=== PATIENT | female | born 1955 | race Caucasian/White ===

== ENCOUNTER 2016-10-26 15:58 | Outpatient (CLI) | payer BC | END 2016-10-26 15:59 | disposition home or self-care (01) | LOC: MADLABBHPM 15:58 | PROVIDERS: ATTEND Family Medicine | DX: N39.0 Urinary tract infection, site not specified (principal) | CPT/HCPCS: 87086 ==

== ENCOUNTER 2020-04-15 12:22 | Emergency (ER) | payer BC, SELFPAY ==
--- NOTE | 2020-04-15 13:01 | RAD ---
Right knee:3 views INDICATIONS:Injury with pain COMPARISON:None FINDINGS: Comminuted fracture involving the proximal tibia with fracture lines involving both medial and latera l tibial plateau with depression of the lateral tibial plateau. Comminuted displaced fracture of the fibular head. Soft tissue edema and evidence of joint effusion. IMPRESSION: Comminuted displaced fractures proximal tibia and fibula.
[2020-04-15] MEDS ORDERED: Ondansetron PF 4 MG/2 ML Vial ONE (13:40)
[2020-04-15] MEDS ORDERED: Sodium Chloride 0.9% 1,000 ML ONE (13:40)
[2020-04-15] MEDS ORDERED: Morphine 4 MG/ML VIAL ONE (13:40)
[2020-04-15 13:50] LABS: #Basophils 0.1 thou/uL (0.0-0.2); #Eosinphils 0.1 thou/uL (0.0-0.7); #Lymphocytes 1.3 thou/uL (1.20-3.40); #Monocytes 0.8 thou/uL (0.11-0.59); #Neutrophils 9.2 thou/uL (1.40-6.50); %Basophils 0.7 % (0.0-1.0); %Eosinophils 0.9 % (0.0-10.0); %Lymphocytes 11.5 % (21.0-51.0); %Monocytes 6.6 % (0.0-10.0); %Neutrophils 80.3 % (42.0-75.0); Hemoglobin 13.4 g/dL (12.0-16.0); Mean Corpuscular HGB CONC 32.2 g/dL (32.0-36.0); Mean Corpuscular Hemoglobin 30.7 pg (27.0-31.0); Mean Corpuscular Volume 95.5 fL (78.0-98.0); Mean Platelet Volume 10.2 fL (7.4-10.4); Platelet Count 225 thou/uL (130-400); RBC Distribution Width 12.1 % (11.5-14.5); Red Blood Cell (RBC) Count 4.38 mill/uL (4.20-5.40); White Blood Cell (WBC) Count 11.5 thou/uL (4.8-10.8)
--- NOTE | 2020-04-15 14:00 | RAD ---
EXAM: Single view of the chest HISTORY: Preoperative radiograph COMPARISON: None FINDINGS: Single view of the chest shows an enlarged cardiomediastinal silhouette. Atherosclerotic c alcifications are seen in the aorta. Opacities projecting over both sides of the chest may represent nipple shadows. There is no evidence of consolidation or pleural effusion. No acute osseous abnormality. IMPRESSION: 1. Cardiomegaly 2. Nipple shadows versus pulmonary parenchymal masses. A repeat chest x-ray with nipple markers is re commended.
[2020-04-15 14:05] LABS: ALT (SGPT) 15 U/L (8-55); AST (SGOT) 18 U/L (5-34); Alkaline Phosphatase 96 U/L (40-110); Anion Gap 15 mmol/L (10-20); BUN (Urea Nitrogen) 12 mg/dL (9.8-20.1); Bilirubin, Total 0.6 mg/dL (0.2-1.2); CK (CPK) 134 U/L (29-168); Calc. Creatinine Clearance 0 mL/min (70-130); Calcium 9.4 mg/dL (7.8-10.44); Carbon Dioxide 26 mmol/L (23-31); Chloride 99 mmol/L (98-107); Estimated GFR-MDRD 69; Globulin 3.5 g/dL (2.4-3.5); Glucose 118 mg/dL (80-115); Potassium 3.8 mmol/L (3.5-5.1); Protein, Total 7.5 g/dL (6.0-8.3); Sodium 136 mmol/L (136-145)
--- NOTE | 2020-04-15 14:14 | CT ---
EXAM: CT brain without contrast HISTORY: Fall from a ladder with head trauma COMPARISON: None TECHNIQUE: Multiple contiguous axial images were obtained and a CT of the brain without contrast. Sag ittal and coronal reformats were performed. FINDINGS: There are scattered hypodensities in the subcortical and periventricular white matter consi stent with small vessel ischemic disease. There is atrophy of the bilateral temporal lobes, left greater than right. There is no evidence of hydrocephalus, intracranial hemorrhage, or extra-axial fl uid collection. The calvarium and overlying soft tissues are unremarkable. The visualized paranasal sinuses and masto id air cells are well aerated. IMPRESSION: No evidence of acute intracranial abnormality
--- NOTE | 2020-04-15 15:13 | CT ---
CT cervical spine without contrast: Multiple axial tones obtained through cervical spine with multiplanar reconstruction. INDICATIONS: trauma with cervical spine injury COMPARISON: none FINDINGS: There are moderate degenerative changes of the cervical spine. Mild wedging of C5 and C6 appears blocker hand li. Loss of disc space at these levels. Posterior spondylosis is prominent at C4-5, C5-6, and C6-7. Left foraminal stenosis at C3-4. Left foraminal stenosis at C4-5. Bilateral foraminal stenosis at C3-5-6 with cord compression and central canal stenosis. Bilateral foraminal stenosis and cord compression C6-7. Lucency through the base of the right transverse process at C7 is noted. This is well-corticated and does not represent an acute fracture. Possible old fracture. No evidence of acute fracture. No other cervical spine fracture identified. IMPRESSION: 1. No evidence of acute cervical spine fracture 2. Degenerative changes as described.
[2020-04-15 15:59] LABS: Bilirubin Negative (Negative); Blood, Urine Negative (Negative); Clarity Clear (Clear); Glucose, Urine (Dipstick) Negative (Negative); Ketone, Urine Negative (Negative); Leukocyte Negative (Negative); Nitrite Negative (Negative); Protein, Urine (Dipstick) Negative (Neg-Trace); Urobilinogen 0.2 mg/dL (Less than 2); pH, Urine 5.5 (5.0-9.0)
[2020-04-15 16:00] LABS: Specific Gravity, Urine 1.025 (1.002-1.036)
[2020-04-15 16:14] LABS: Amphetamine Detected (NotDetected); Barbiturates Screen Not Detected (NotDetected); Benzodiazepine Screen Not Detected (NotDetected); Cocaine Metabolite Screen Not Detected (NotDetected); Medtox Control Line Valid? VALID (VALID); Methadone Not Detected (NotDetected); Methamphetamine Detected (NotDetected); Opiate Screen Detected (NotDetected); Oxycodone Screen Not Detected (NotDetected); Phencyclidine (PCP) Not Detected (NotDetected); THC/Cannabinoid Screen Not Detected (NotDetected); Tricyclic Screen Not Detected (NotDetected)
== END 2020-04-15 16:25 | disposition short-term general hospital (02) ==
LOC: MADERS 12:22
DX: S82.451A Displaced comminuted fracture of shaft of right fibula, initial encounter for closed fracture (principal); S82.251A Displaced comminuted fracture of shaft of right tibia, initial encounter for closed fracture; S82.141A Displaced bicondylar fracture of right tibia, initial encounter for closed fracture; F15.20 Other stimulant dependence, uncomplicated; E78.5 Hyperlipidemia, unspecified; E78.00 Pure hypercholesterolemia, unspecified; I10 Essential (primary) hypertension; Z79.82 Long term (current) use of aspirin; Z79.899 Other long term (current) drug therapy; W11.XXXA Fall on and from ladder, initial encounter
CPT/HCPCS: 70450; 71045; 72125; 80053; 80306; 81003; 82550; 85025; 93005; 96374; 96375; J2270; J2405; J7050

== ENCOUNTER 2020-11-14 18:41 | Emergency (ER) | payer SELFPAY ==
[~2020-11-14 18:41] MED LIST: Sodium Chloride 0.9% 100 ML BAG ONE
[2020-11-14] MEDS ORDERED: cefTRIAXone\\ROCEPHIN 1 GM VIAL ONE (19:08)
[2020-11-14] MEDS ORDERED: Aspirin Chewable 81 MG TAB ONE (19:08)
[2020-11-14] MEDS ORDERED: methylPREDNISolone Sod Succ/PF 125 MG/2 ML VIAL ONE (19:08)
[2020-11-14 19:19] LABS: ALT (SGPT) 64 U/L (8-55); AST (SGOT) 77 U/L (5-34); Albumin 3.9 g/dL (3.4-4.8); Alkaline Phosphatase 136 U/L (40-110); Anion Gap 19 mmol/L (10-20); BUN (Urea Nitrogen) 18 mg/dL (9.8-20.1); CK (CPK) 80 U/L (29-168); Calc. Creatinine Clearance 0 mL/min (70-130); Calcium 9.3 mg/dL (7.8-10.44); Carbon Dioxide 23 mmol/L (23-31); Chloride 102 mmol/L (98-107); Globulin 3.3 g/dL (2.4-3.5); Glucose 105 mg/dL (80-115); Potassium 3.9 mmol/L (3.5-5.1); Protein, Total 7.2 g/dL (5.8-8.1); Sodium 140 mmol/L (136-145)
[2020-11-14 19:33] LABS: #Basophils 0.1 thou/uL (0.0-0.2); #Eosinphils 0.2 thou/uL (0.0-0.7); #Lymphocytes 2.8 thou/uL (1.20-3.40); #Monocytes 0.7 thou/uL (0.11-0.59); #Neutrophils 4.9 thou/uL (1.40-6.50); %Basophils 1.5 % (0.0-1.0); %Eosinophils 2.7 % (0.0-10.0); %Lymphocytes 31.9 % (21.0-51.0); %Monocytes 8.3 % (0.0-10.0); %Neutrophils 55.7 % (42.0-75.0); Anisocytosis SLIGHT = 6-15 cells (100X) (0-5/hpf); Giant Platelets SLIGHT; Hemoglobin 13.4 g/dL (12.0-16.0); Large Platelets MODERATE; MDiff Complete? YES; Mean Corpuscular HGB CONC 30.6 g/dL (32.0-36.0); Mean Corpuscular Volume 91.6 fL (78.0-98.0); Mean Platelet Volume 13.4 fL (7.4-10.4); Platelet Count 267 thou/uL (130-400); Polychromasia SLIGHT = 2-3 cells (100X) (0-2/hpf); RBC Distribution Width 17.2 % (11.5-14.5); Red Blood Cell (RBC) Count 4.78 mill/uL (4.20-5.40); White Blood Cell (WBC) Count 8.8 thou/uL (4.8-10.8)
[2020-11-14 19:34] LABS: Nucleated RBC 0 % (0)
[2020-11-14 19:36] LABS: CKMB 5.2 ng/mL (0-6.6)
[2020-11-14 19:39] LABS: Acetaminophen Less than 6.0 mcg/mL (10.0-30.0); Alcohol Less than 10 mg/dL (Less than 10); Salicylate Less than 8.0 mg/dL (15.0-30.0)
[2020-11-14] MEDS ORDERED: Furosemide 40 MG/4 ML VIAL ONE (19:44)
[2020-11-14] MEDS ORDERED: Magnesium 2 GM/50 ML BAG (IN WATER) ONE (19:44)
[2020-11-14] MEDS ORDERED: Azithromycin 500 MG VIAL ONE (20:23)
[2020-11-14 20:46] LABS: Bilirubin Negative (Negative); Blood, Urine Negative (Negative); Clarity Clear (Clear); Glucose, Urine (Dipstick) Negative (Negative); Ketone, Urine Negative (Negative); Leukocyte Negative (Negative); Nitrite Negative (Negative); Protein, Urine (Dipstick) Trace mg/dL (Neg-Trace); Specific Gravity, Urine 1.015 (1.005-1.030); Urobilinogen 0.2 mg/dL (Less than 2)
[2020-11-14 20:51] LABS: SARS-CoV-2 NAA Rapid Test Not Detected (NotDetected)
[2020-11-14 20:58] LABS: Amphetamine Not Detected (NotDetected); Barbiturates Screen Not Detected (NotDetected); Benzodiazepine Screen Not Detected (NotDetected); Cocaine Metabolite Screen Not Detected (NotDetected); Medtox Control Line Valid? VALID (VALID); Methadone Not Detected (NotDetected); Methamphetamine Not Detected (NotDetected); Opiate Screen Not Detected (NotDetected); Oxycodone Screen Not Detected (NotDetected); Phencyclidine (PCP) Not Detected (NotDetected); THC/Cannabinoid Screen Not Detected (NotDetected); Tricyclic Screen Not Detected (NotDetected)
[2020-11-14] MEDS ORDERED: Ondansetron PF 4 MG/2 ML Vial ONE (21:29)
[2020-11-14 22:03] LABS: Lactic Acid 3.7 mmol/L (0.5-2.2)
[2020-11-14 22:19] LABS: Troponin I 0.023 ng/mL (< 0.028)
[2020-11-14] MEDS ORDERED: Ondansetron PF 4 MG/2 ML Vial IVP PRN (23:45)
[2020-11-14] MEDS ORDERED: Ondansetron ODT 4 MG TAB SL PRN (23:45)
[2020-11-14] MEDS ORDERED: Acetaminophen 325 MG TAB PO PRN (23:45)
[2020-11-15] MEDS ORDERED: Furosemide 40 MG/4 ML VIAL SLOW IVP SCH (06:00)
[2020-11-15] MEDS ORDERED: Aspirin 325 MG TAB PO SCH (08:00)
== END 2020-11-14 22:22 | disposition short-term general hospital (02) ==
LOC: MADERS 18:41
DX: I11.0 Hypertensive heart disease with heart failure (principal); I50.9 Heart failure, unspecified; E78.5 Hyperlipidemia, unspecified; F17.210 Nicotine dependence, cigarettes, uncomplicated; Z79.899 Other long term (current) drug therapy
CPT/HCPCS: 36415; 71045; 80053; 80306; 80307; 81003; 82550; 82553; 83605; 83880; 84484; 85025; 93005; 94640; 96365; 96367; 96375; J0456; J0696; J1940; J2405; J2930; J3475; J3490; J7050; J7620; U0002

== ENCOUNTER 2020-12-19 19:11 | Emergency (ER) | payer SELFPAY ==
[2020-12-19] MEDS ORDERED: Furosemide 40 MG/4 ML VIAL ONE (21:06)
[2020-12-19 21:55] LABS: #Basophils 0.1 thou/uL (0.0-0.2); #Eosinphils 0.1 thou/uL (0.0-0.7); #Lymphocytes 2.1 thou/uL (1.20-3.40); #Monocytes 0.6 thou/uL (0.11-0.59); #Neutrophils 6.2 thou/uL (1.40-6.50); %Basophils 1.4 % (0.0-1.0); %Lymphocytes 22.9 % (21.0-51.0); %Neutrophils 67.7 % (42.0-75.0); Hemoglobin 14.1 g/dL (12.0-16.0); Mean Corpuscular HGB CONC 29.4 g/dL (32.0-36.0); Mean Corpuscular Hemoglobin 26.7 pg (27.0-31.0); Mean Corpuscular Volume 90.7 fL (78.0-98.0); Mean Platelet Volume 11.4 fL (7.4-10.4); Platelet Count 240 thou/uL (130-400); Platelet Morphology Comment Appears Adequate; RBC Distribution Width 16.6 % (11.5-14.5); RBC Morphology Normal; Red Blood Cell (RBC) Count 5.27 mill/uL (4.20-5.40); White Blood Cell (WBC) Count 9.1 thou/uL (4.8-10.8)
[2020-12-19 22:00] LABS: ALT (SGPT) 22 U/L (8-55); AST (SGOT) 27 U/L (5-34); Alkaline Phosphatase 118 U/L (40-110); Anion Gap 19 mmol/L (10-20); BUN (Urea Nitrogen) 20 mg/dL (9.8-20.1); Calc. Creatinine Clearance 0 mL/min (70-130); Calcium 10.2 mg/dL (7.8-10.44); Carbon Dioxide 21 mmol/L (23-31); Chloride 106 mmol/L (98-107); Globulin 3.3 g/dL (2.4-3.5); Glucose 89 mg/dL (80-115); Lipase 8 U/L (8-78); Protein, Total 7.3 g/dL (5.8-8.1); Sodium 141 mmol/L (136-145)
[2020-12-19] MEDS ORDERED: Azithromycin 500 MG VIAL ONE (22:12)
[2020-12-19] MEDS ORDERED: cefTRIAXone\\ROCEPHIN 1 GM VIAL ONE (22:12)
[2020-12-19] MEDS ORDERED: Sodium Chloride 0.9% 1,000 ML ONE (22:12)
[2020-12-19 22:50] LABS: Bilirubin Negative (Negative); Blood, Urine Negative (Negative); Clarity Clear (Clear); Glucose, Urine (Dipstick) Negative (Negative); Ketone, Urine Negative (Negative); Leukocyte Negative (Negative); Nitrite Negative (Negative); Protein, Urine (Dipstick) 100 mg/dL (Neg-Trace); Urobilinogen 0.2 mg/dL (Less than 2); pH, Urine 5.5 (5.0-9.0)
[2020-12-19 22:51] LABS: Specific Gravity, Urine 1.025 (1.002-1.036)
[2020-12-19 22:52] LABS: Bacteria/HPF Rare-Few HPF (None Seen); Mucous/LPF 3+ LPF (<2+); RBC/HPF 0-3 HPF (0-3); Squamous Epithelial 0-3 HPF (0-3); WBC/HPF 0-3 HPF (0-3)
[2020-12-20 00:43] LABS: SARS-CoV-2 NAA Rapid Test Not Detected (NotDetected)
== END 2020-12-20 00:15 | disposition short-term general hospital (02) ==
LOC: MADERS 19:11
DX: I11.0 Hypertensive heart disease with heart failure (principal); I50.9 Heart failure, unspecified; Z20.822 Contact with and (suspected) exposure to COVID-19; F17.210 Nicotine dependence, cigarettes, uncomplicated; E78.5 Hyperlipidemia, unspecified; E78.00 Pure hypercholesterolemia, unspecified; Z86.73 Personal history of transient ischemic attack (TIA), and cerebral infarction without residual deficits; Z79.899 Other long term (current) drug therapy
CPT/HCPCS: 71045; 80053; 81003; 81015; 83605; 83690; 83880; 84484; 85025; 87040; 93005; 96365; 96366; 96375; J0456; J0696; J1940; J7050; U0002

== ENCOUNTER 2021-11-21 11:18 | Emergency (ER) | payer BC ==
[2021-11-21] MEDS ORDERED: Amoxicillin/Potassium Clav 875 MG TAB ONE (11:54)
[2021-11-21] MEDS ORDERED: Lidocaine 1% PF 5 ML VIAL ONE (11:54)
[2021-11-21] MEDS ORDERED: cefTRIAXone\\ROCEPHIN 1 GM VIAL ONE (11:54)
== END 2021-11-21 12:00 | disposition home or self-care (01) ==
LOC: MADERS 11:18
DX: K04.7 Periapical abscess without sinus (principal); I10 Essential (primary) hypertension; E78.5 Hyperlipidemia, unspecified; F17.210 Nicotine dependence, cigarettes, uncomplicated; Z79.899 Other long term (current) drug therapy
CPT/HCPCS: 96372; 99282; J0696

== ENCOUNTER 2022-08-05 11:45 | Outpatient (CLI) | payer BC | END 2022-08-05 11:46 | disposition home or self-care (01) | LOC: MADRAD 11:45 | PROVIDERS: ATTEND Internal Medicine | DX: J45.51 Severe persistent asthma with (acute) exacerbation (principal); J01.90 Acute sinusitis, unspecified; J32.0 Chronic maxillary sinusitis; R91.8 Other nonspecific abnormal finding of lung field | CPT/HCPCS: 70220; 71046 ==

== ENCOUNTER 2025-01-31 00:34 | Emergency (ER) | payer MEDICARE ==
[2025-01-31 01:08] LABS: #Basophils 0.2 thou/uL (0.0-0.2); #Eosinophils 0.6 thou/uL (0.0-0.7); #Lymphocytes 1.5 thou/uL (1.20-3.40); #Monocytes 0.5 thou/uL (0.11-0.59); #Neutrophils 10.4 thou/uL (1.40-6.50); %Basophils 1.6 % (0.0-1.0); %Eosinophils 4.7 % (0.0-10.0); %Lymphocytes 11.1 % (21.0-51.0); %Monocytes 3.5 % (0.0-10.0); %Neutrophils 79.1 % (42.0-75.0); Hematocrit 43.0 % (36.0-47.0); Hemoglobin 13.8 g/dL (12.0-16.0); Mean Corpuscular Hemoglobin 32.5 pg (27.0-31.0); Mean Corpuscular Volume 101.1 fl (78.0-98.0); Platelet Count 228 10x3/uL (130-400); Red Blood Cell (RBC) Count 4.25 mill/uL (4.20-5.40); White Blood Cell (WBC) Count 13.2 10x3/uL (4.8-10.8)
[2025-01-31] MEDS ORDERED: Nitroglycerin 0.4 MG TAB 1 EACH ONE (01:08)
[2025-01-31 01:27] LABS: ALT (SGPT) 11 U/L (Less than 34); AST (SGOT) 34 U/L (11-34); Albumin 4.1 g/dL (3.1-4.5); Alkaline Phosphatase 95 U/L (40-110); Anion Gap 16 mmol/L (10-20); BUN (Urea Nitrogen) 10 mg/dL (9.8-20.1); Bilirubin, Total 0.3 mg/dL (0.3-1.2); Calc. Creatinine Clearance 0 mL/min (70-130); Calcium 8.7 mg/dL (7.8-10.44); Carbon Dioxide 27 mmol/L (23-31); Chloride 100 mmol/L (98-107); Globulin 3.3 g/dL (2.4-3.5); Glucose 104 mg/dL (80-115); Potassium 4.5 mmol/L (3.5-5.1); Sodium 138 mmol/L (136-145)
[2025-01-31 01:28] LABS: Troponin I 0.029 ng/mL (< 0.028)
[2025-01-31] MEDS ORDERED: Enoxaparin 60 MG (0.6 mL) SYRINGE ONE (01:46)
[2025-01-31 03:28] LABS: Troponin I 0.175 ng/mL (< 0.028)
[2025-01-31 07:18] LABS: Hematocrit 44.0 % (36.0-47.0); Hemoglobin 14.3 g/dL (12.0-16.0); Mean Corpuscular Hemoglobin 32.4 pg (27.0-31.0); Mean Corpuscular Volume 99.3 fl (78.0-98.0); Platelet Count 225 10x3/uL (130-400); Red Blood Cell (RBC) Count 4.43 mill/uL (4.20-5.40); White Blood Cell (WBC) Count 7.2 10x3/uL (4.8-10.8)
[2025-01-31 07:22] LABS: Anion Gap 15 mmol/L (10-20); BUN (Urea Nitrogen) 12 mg/dL (9.8-20.1); Calc. Creatinine Clearance 0 mL/min (70-130); Calcium 8.8 mg/dL (7.8-10.44); Carbon Dioxide 26 mmol/L (23-31); Chloride 100 mmol/L (98-107); Glucose 142 mg/dL (80-115); Potassium 4.6 mmol/L (3.5-5.1); Sodium 136 mmol/L (136-145)
[2025-01-31 07:28] LABS: MDiff Complete? YES; Manual Diff?? YES
[2025-01-31 07:29] LABS: Platelet Adequacy Comment Appears Adequate
[2025-01-31 07:41] LABS: Troponin I 0.414 ng/mL (< 0.028)
[2025-01-31 07:47] LABS: Critical Call Chem Troponin I CALLED TO MAD.LF @07
== END 2025-01-31 07:51 | disposition short-term general hospital (02) ==
LOC: MADERS 00:34
DX: I21.4 Non-ST elevation (NSTEMI) myocardial infarction (principal); J44.1 Chronic obstructive pulmonary disease with (acute) exacerbation; J96.20 Acute and chronic respiratory failure, unspecified whether with hypoxia or hypercapnia; R79.89 Other specified abnormal findings of blood chemistry; I25.10 Atherosclerotic heart disease of native coronary artery without angina pectoris; J44.9 Chronic obstructive pulmonary disease, unspecified; I10 Essential (primary) hypertension; E78.00 Pure hypercholesterolemia, unspecified; F17.210 Nicotine dependence, cigarettes, uncomplicated; Z86.73 Personal history of transient ischemic attack (TIA), and cerebral infarction without residual deficits; Z79.51 Long term (current) use of inhaled steroids; Z79.899 Other long term (current) drug therapy
CPT/HCPCS: 71045; 80048; 80053; 83880; 84484 ×2; 85025 ×2; 85379; 87426; 93005; 94760; J1650; 36415; J2919

== ENCOUNTER 2025-02-15 15:20 | Emergency (ER) | payer MEDICARE ==
[2025-02-15] MEDS ORDERED: Ibuprofen 600 MG TAB ONE (15:45)
== END 2025-02-15 16:52 | disposition home or self-care (01) ==
LOC: MADERS 15:20
DX: S83.92XA Sprain of unspecified site of left knee, initial encounter (principal); I10 Essential (primary) hypertension; I25.10 Atherosclerotic heart disease of native coronary artery without angina pectoris; J44.9 Chronic obstructive pulmonary disease, unspecified; F17.210 Nicotine dependence, cigarettes, uncomplicated; Z86.73 Personal history of transient ischemic attack (TIA), and cerebral infarction without residual deficits; W22.8XXA Striking against or struck by other objects, initial encounter
CPT/HCPCS: 99283